=== PATIENT | male | born 1970 | race Caucasian/White ===

== ENCOUNTER 2017-08-22 06:19 | Day surgery (SDC) | payer OTHER ==
[~2017-08-22] VITALS: Ht 165.1 cm; Wt 72.7 kg
[~2017-08-22 06:19] MED LIST: LISI-363 PO
[2017-08-22] MEDS ORDERED: ASPI81CH37 CHEW (06:59)
[2017-08-22] MEDS ORDERED: ATOR40TA16 PO (06:59)
[2017-08-22 07:10] VITALS: BP 150/88; PULSE 94; RESP 17; TEMP 98.5; O2SAT 97
[2017-08-22] MEDS ORDERED: SODIUM CHLOR 0.9% 1000 ML INJ 1,000 ML IV SCH ×2 (07:15→12:00)
[2017-08-22] MEDS ORDERED: HEPARIN-NS/PF INJ 1,000 ML ONE (08:16)
[2017-08-22] MEDS ORDERED: MIDAZOLAM HCL 5 MG/5 ML VIAL ONE ×2 (08:17→09:00)
[2017-08-22] MEDS ORDERED: HEPARIN SODIUM - IV 10,000 UNITS/10 ML VIAL ONE (08:18)
[2017-08-22] MEDS ORDERED: NITROGLYCERIN INJ 5 ML ONE (08:19)
[2017-08-22] MEDS ORDERED: MIDAZOLAM HCL 2 MG/2 ML VIAL ONE ×2 (08:43→09:53)
[2017-08-22] MEDS ORDERED: LIDOCAINE HCL 2% 50 ML VIAL ONE (08:56)
[2017-08-22] MEDS ORDERED: HEPARIN-NS/PF INJ 500 ML ONE ×2 (09:05→09:50)
[2017-08-22] MEDS ORDERED: CLOPIDOGREL 300 MG TAB ONE (10:12)
[2017-08-22] MEDS ORDERED: ONDANSETRON HCL 4 MG/2 ML VIAL IV PUSH PRN (10:15)
[2017-08-22] MEDS ORDERED: MISC INFORMATION XX ONE (10:15)
[2017-08-22] MEDS ORDERED: LIDOCAINE HCL 1% 50 ML VIAL INFIL PRN (10:15)
[2017-08-22] MEDS ORDERED: METOCLOPRAMIDE HCL 10 MG/2 ML VIAL IV PUSH PRN (10:15)
[2017-08-22] MEDS ORDERED: LORazepam 2 MG/ML VIAL IV PUSH PRN (10:15)
[2017-08-22] MEDS ORDERED: ATROPINE SULFATE 1 MG/ML VIAL IV PUSH PRN (10:15)
[2017-08-22] MEDS ORDERED: SODIUM CHLOR 0.9% 250 ML INJ 250 ML IV PRN (10:15)
[2017-08-22] MEDS ORDERED: oxyCODONE/ACETAMINOPHEN 5 MG/325 MG TAB PO PRN ×2 (10:15)
[2017-08-22] MEDS ORDERED: PLAV75TA29 PO (10:18)
--- NOTE | 2017-08-22 10:19 | CATHPROC ---
vLex HIS Report Study Information Study Number Admission Scheduled Start Study Start [id number] Aug 22 2017 6:19AM 08/22/2017 Aug 22 2017 8:18AM [place] [facility] Cath Endovascular Study Admit Source Facility Department Other [facility] [address] - Saw Superintendent Physician and Clinical Staff Initial Will Benson Furnace Repairer Karina Yanes,ROME Other Edgard Wu,ROME Recorder Araceli Klein,RT(R) Scrub Jose A Wei,RT(R) Procedures Performed Procedure Location (Site) Vessel Name Abdominal Angiogram Abd Aorta (A3) Aorta Angiogram (manual) Iliac L. Com. (L4) [place] Art. Angiogram (manual) Iliac R. Com. (R4) [place] Art. Angiogram (manual) Peroneal (left) Popliteal Angiogram (manual) Popliteal L (L10) Popliteal Angiogram (manual) SFA (left) Femoral Art Angiogram (manual) Tib, Ant. (left) Popliteal Angiogram (manual) Tib, Post (Left) Popliteal Periph stent Iliac L. Com. (L4) [place] Art. Periph stent Iliac R. Com. (R4) [place] Art. LOCAL FLATBED DRIVER Iliac L. Com. (L4) [place] Art. Wire insertion Fem Art (left) Femoral Art Wire insertion Fem Art (right) Femoral Art Equipment Time Material Carrier Description Size Mfg Part Number Used/Scraped CATHETER, FR4 HORACE [id number] 09:16 ANGIO-DYNAMICS FR 4 Used 65CM *[id number] CATHETER, [facility] [id number] 09:06 CORDIS/ CARLINE 90CM Used 90CM *[id number] 08:28 CORDIS/ CARLINE RIM SUPER TORQUE CATHETER FR 5 Used *[id number] 09:01 CORDIS/ CARLINE SHEATH, FR6 BRITE TIP 23CM FR 6 23CM [id number] Used [id number] *[id number] ENDOVASCULAR [id number] 09:34 STENT, EVERFLEX 7 X 100 120CM 7 X 100 Used COMPANY 120 BALLOON, ADMIRAL EXTREME 7 X [id number] 09:29 [employer]EC [employer] 80CM Used 60 80CM *[id number] STENT, 7 X 20 ASSURANT [id number] 09:57 [employer] 130CM Used COBALT 130CM *[id number] STENT, 7 X 30 ASSURANT [id number] 10:03 [employer] 130CM Used COBALT 130CM *[id number] STENT, 7 X 60 ASSURANT [id number] 09:55 [employer] 80CM Used COBALT 80CM *[id number] 08:28 MALLINCKRODT SYRINGE, ANGIOMAT 150ML 150ML [id number] Used [id number] 08:28 MEDLINE INDUSTRIES PACK, CCL CUSTOM * Used *[id number] 08:28 MEDLINE PACER PEN, SKIN DUAL W/ RULER * Used *[id number]-6F- 09:41 N-Trig MEDICAL SHEATH, FR6.5 PRELUDE 11CM FR 6.5 038ACT Used *[id number]-6F- 10:07 MERIT MEDICAL SHEATH, FR6.5 PRELUDE 11CM FR 6.5 038ACT Used *[id number] 08:28 N-Trig MEDICAL WIRE, EXCHANGE 260CM [id number] 260CM Used *[id number] 08:28 NAMIC MANIFOLD, 4 PORT * Used *[id number] 08:28 NAMIC TUBING, HIGH PRESSURE 48" 48" Used *[id number] 08:28 NYCOMED OMNIPAQUE, 300 MG, 150ML 150ML [id number] Used 08:40 NYCOMED OMNIPAQUE, 350 MG, 150ML 150ML [id number] Used [id number] 08:28 [employer]ROE MEDICAL BLANKET,WARM AIR CCL * Used *1492975 [id number] 08:28 TERUMO MEDICAL SHEATH, FR5 TERUMO (10CM) FR 5 Used *[id number] WIRE, ANGLE GLIDE STIFF .035 [id number] 08:28 TERUMO MEDICAL/CARLINE 260CM Used 260CM *[id number] Equipment Model, Serial, Lot Number and Expiration Data Description Model Number Serial Number Lot Number Expiration Date SHEATH, FR6.5 PRELUDE 11CM [id number] 01-01-2020 STENT, 7 X 20 ASSURANT COBALT [id number] 01-18-2018 130CM STENT, 7 X 30 ASSURANT COBALT [id number] 09-12-2018 130CM STENT, 7 X 60 ASSURANT COBALT [id number] 03-05-2018 80CM STENT, EVERFLEX 7 X 100 120CM [id number] 09-07-2019 History: Current Medications Medication Dosage/Unit Route Frequency Last Date/Time Taken ASA Statins (any) History: Allergies Allergy Reaction phenobarbital History: Risk Factors Family History of Hypertension Dyslipidemia Previous CA Previous Heart Failure Premature CAD Yes Yes No No No Prior Valve Prior PCI Prior CABG Surgery No No No Cerebrovascular Peripheral Artery Chronic Lung On Dialysis Diabetes Disease Disease Disease No No Yes Yes No History: Stress Tests Stress or Imaging Studies Performed No History: Other Current Smoker Method Packs a Day Years Used Pack Years Yes Cigarettes 1 25 25 Labs Hgb (g/dl) Hct (%) RBC (MIL/MM3) WBC (l/cumm) Platelets (thousands) 11.60-17.00 35.00-51.00 4.00-5.90 4.00-11.00 150.00-450.00 16.3 48.6 5.2 13.4 342 Glucose (mg/dl) BUN (mg/dl) Creatinine (mg/dl) BUN:Creatinine (1:x) 74.00-106.00 7.00-18.00 0.50-1.30 10.00-20.00 112 11 1.1 10 Na (meq/l) K (meq/l) Cl (meq/l) CO2 (mmol/L) Ca (mg/dl) 136.00-145.00 3.50-5.10 98.00-107.00 21.00-32.00 8.50-10.10 140 4.2 101 20 9.4 PT (sec) INR (PTT:PT) 9.80-11.60 0.90-1.10 9.4 0.9 CPK-MB (ng/ML) 0.50-3.60 Not Drawn Medication Medication Total Dose (Bolus/Oral) Medication Total Dosage/Unit 1% XYLOCAINE 40 mL FENTANYL 350 mcg HEPARIN 6000 units PLAVIX 600 mg VERSED 13 mg Medications (Bolus/Oral) Medication Time Given Dosage/Unit Administered By Reason VERSED 08/22/2017 8:38:12 AM 2 mg Karina Yanes 2 mg VERSED given in lab by Karina Yanes RN via Peripheral IV. Ordered by Will Nolasco. FENTANYL 08/22/2017 8:39:32 AM 50 mcg Karina Yanes 50 mcg FENTANYL given in lab by Karina Yanes, ROME via Peripheral IV. Ordered by Will Nolasco. VERSED 08/22/2017 8:42:43 AM 2 mg Adamy, Karina 2 mg VERSED given in lab by Karina Yanes RN via Peripheral IV. Ordered by Will Nolasco. 1% XYLOCAINE 08/22/2017 8:43:05 AM 20 mL Will Nolasco 20 mL 1% XYLOCAINE given in lab by Will Nolasco in Right Groin via Subcutaneous. FENTANYL 08/22/2017 8:43:53 AM 50 mcg Adamy, Karina 50 mcg FENTANYL given in lab by Karina Yanes RN via Peripheral IV. Ordered by Will Nolasco. VERSED 08/22/2017 8:48:15 AM 2 mg Adamy, Karina 2 mg VERSED given in lab by Karina Yanes RN via Peripheral IV. FENTANYL 08/22/2017 8:49:29 AM 50 mcg Adamy, Karina 50 mcg FENTANYL given in lab by Karina Yanes RN via Peripheral IV. VERSED 08/22/2017 8:58:00 AM 1 mg Adamy, Karina 1 mg VERSED given in lab by Karina Yanes RN via Peripheral IV. FENTANYL 08/22/2017 8:59:10 AM 50 mcg Jonathany, Karina 50 mcg FENTANYL given in lab by Karina Yanes RN via Peripheral IV. 1% XYLOCAINE 08/22/2017 8:59:24 AM 20 mL Will Nolasco 20 mL 1% XYLOCAINE given in lab by Will Nolasco in Left Groin via Subcutaneous. HEPARIN 08/22/2017 9:03:26 AM 5000 units Karina Yanes 5000 units HEPARIN given in lab by Karina Yanes RN via Peripheral IV. VERSED 08/22/2017 9:07:24 AM 2 mg Adamy, Karina 2 mg VERSED given in lab by Karina Yanes RN via Peripheral IV. FENTANYL 08/22/2017 9:08:39 AM 50 mcg Adamy, Karina 50 mcg FENTANYL given in lab by Karina Yanes RN via Peripheral IV. VERSED 08/22/2017 9:33:24 AM 2 mg Adamy, Karina 2 mg VERSED given in lab by Karina Yanes, ROME via Peripheral IV. FENTANYL 08/22/2017 9:34:31 AM 50 mcg Karina Yanes 50 mcg FENTANYL given in lab by Karina Yanes, ROME via Peripheral IV. VERSED 08/22/2017 9:54:50 AM 2 mg Karina Yanes 2 mg VERSED given in lab by Karina Yanes, ROME via Peripheral IV. FENTANYL 08/22/2017 9:55:10 AM 50 mcg Karina Yanes 50 mcg FENTANYL given in lab by Karina Yanes, ROME via Peripheral IV. HEPARIN 08/22/2017 10:00:45 AM 1000 units Karina Yanes 1000 units HEPARIN given in lab by Karina Yanes, ROME via Peripheral IV. PLAVIX 08/22/2017 10:16:02 AM 600 mg Karina Yanes 600 mg PLAVIX given in lab by Karina Yanes RN via Oral. Medication (Drip) Medication Time Given Dosage/Unit Concentration/Unit Diluent (ml) Solution IV Solutions 08/22/2017 8:20:16 AM 0 mL (IV) 500 NaCl .9 Patient arrived on IV Solutions in Left Antecubital via Peripheral IV. Pump/Drip Flow = 20 ml/hr usin g NaCl .9. Ordered by Will Nolasco. Initial Case Assessment Cardiovascular HR Rhythm 78 reg Edema Present Skin color Skin None Normal Warm Circulatory - Right Pulses Dorsalis Pedis Femoral d 2 Scale (0,1,2,3,4,d) Circulatory - Left Pulses Dorsalis Pedis Femoral d 1 Scale (0,1,2,3,4,d) Circulatory - Lower Extremities Color Lower Right Color Lower Left Normal Normal Neurological State Oriented to time-place- Alert Moves all extremities person Respiration - General Respiration Rate SpO2 (%) (B/min) 9 97 Final Case Assessment Cardiovascular HR Rhythm NIBP Chest Pain 84 reg 123/69 0 Edema Present Skin color Skin None Normal Warm Circulatory - Right Pulses Dorsalis Pedis Femoral d 2 Scale (0,1,2,3,4,d) Circulatory - Left Pulses Dorsalis Pedis Femoral d 1 Scale (0,1,2,3,4,d) Circulatory - Lower Extremities Color Lower Left Normal Neurological State Oriented to time-place- Alert Moves all extremities person Respiration - General Respiration Rate SpO2 (%) (B/min) 18 96 Chronological Log Time Study Chronological Log 8:10:14 Patient arrived via Bed. 8:11:21 Patient Name, D.O.B, / Armband Verified By R.N. 8:12:26 Consent signed by the physician and the patient and verified by the Saw Superintendent staff. 8:13:31 Verbal Stimulation=2 Physical Stimulation=2 Airway=2 Respiration=2 TOTAL=8. (0=absent, 1=li mited, 2=present) 8:19:34 Patient has been NPO for More than 6Hrs. 8:19:36 Skin Breakdown-none 8:19:57 Patient Warmer Placed on the Table. 8:20:00 A # 20 IV was noted in the Antecubital (left). Grade = 0 Patient arrived on IV Solutions in Left Antecubital via Peripheral IV. Pump/Drip Flow = 20 ml/h r using NaCl .9. Ordered 8:20:16 by Will Nolasco. 8:20:53 History and physical on the chart or being dictated. Assessment: Initial Case, HR=78 BPM, Rhythm=reg, Edema=None, Color=Normal, Skin = Warm Right Pulses: Jose Antonio Ped=d, Femoral=2 Left Pulses: Jose Antonio Ped=d, Femoral=1 8:20:55 Lower Right Extremities: Color=Normal Lower Left Extremities: Color=Normal Neurological: State=Alert, Ox3, MCNEILL Respiration: Resp=9 B/min, SpO2=97 % Vitals capture started with the following parameters, Patient=Adult, Interval=5 min, Initial Pre rarcu=617 mmHg, 8:21:06 Deflation Rate=5 mmHg 8:21:41 HR=83 bpm, JBIX=476/85 mmhg, SpO2=97.0 %, Resp=9 B/min 8:21:42 Bilateral groins prepped with 2% chlorhexidine, and with a 3 min. waiting time. 8:24:15 MD paged 8:26:38 HR=84 bpm, ZOXH=785/82 mmhg, SpO2=98.0 %, Resp=14 B/min, Pain=0, Terri=10, Marques=2 8:32:10 EF=732 bpm, IXKO=805/87 mmhg, SpO2=99.0 %, Resp=16 B/min, Pain=0, Terri=10, Marques=2 8:36:38 HR=92 bpm, HEZG=850/90 mmhg, LjR6=764.0 %, Resp=10 B/min, Pain=0, Terri=10, Marques=2 8:37:26 MD arrived. 8:37:33 Pressure channel 1 zeroed. 8:38:12 2 mg VERSED given in lab by Karina Yanes, ROME via Peripheral IV. Ordered by Will Nolasco . 8:39:32 50 mcg FENTANYL given in lab by Karina Yanes RN via Peripheral IV. Ordered by Hernandez Nolasco. power injector loaded by sandy yanes and verified by maria isabel wei 8:39:44 8:40:08 Contrast Scanned 8:41:39 HR=88 bpm, MRUU=324/81 mmhg, TuU9=284.0 %, Resp=9 B/min, Pain=0, Terri=10, Marques=2 Time Out. Correct patient, correct procedure,correct physician, ,power injector loaded with cont rast with surgical team 8:41:51 present. Time Out Concurred by MD, individual staff and EYE SPECIALIST in procedure Time Out #2 - Consents verified, patient in correct position, all results are labled and display ed, safety precautions 8:41:58 taken, antibiotics administered. Time out concurred by , individual staff and EYE SPECIALIST. 8:42:00 Case Start 8:42:02 Verbal Stimulation=2 Physical Stimulation=2 Airway=2 Respiration=2 TOTAL=8. (0=absent, 1=tony ited, 2=present) 8:42:43 2 mg VERSED given in lab by Karina Yanes RN via Peripheral IV. Ordered by Will Nolasco . 8:43:05 20 mL 1% XYLOCAINE given in lab by Will Nolasco in Right Groin via Subcutaneous. 8:43:53 50 mcg FENTANYL given in lab by Karina Yanes RN via Peripheral IV. Ordered by Hernandez Nolasco. 8:44:58 Access site was Right Femoral Artery. 8:45:04 A wire was inserted via Fem Art (right). 8:45:16 A SHEATH, FR5 TERUMO (10CM) FR 5 was advanced into the Fem Art (right) using the Percutaneou s technique. A PIGTAIL ANG. INFINITI CATHETER FR 5 was advanced over a wire. OMNIPAQUE, 300 MG, 150ML 150ML w as used 8:46:39 for injections. 8:46:40 HR=80 bpm, HGAL=405/82 mmhg, SpO2=96.0 %, Resp=12 B/min, Pain=0, Terri=10, Marques=2 8:48:15 2 mg VERSED given in lab by Karina Yanes, ROME via Peripheral IV. 8:49:14 Through a PIGTAIL ANG. INFINITI CATHETER FR 5, The Abdominal Aorta was injected with 12 cc's of contrast. 8:49:29 50 mcg FENTANYL given in lab by Karina Yanes, ROME via Peripheral IV. After removing the current catheter a RIM SUPER TORQUE CATHETER FR 5 was advanced over a WIRE, A NGLE GLIDE 8:50:43 STIFF .035 260CM 260CM. 8:50:51 Wire removed 8:51:39 HR=75 bpm, GFJI=387/69 mmhg, SpO2=96.0 %, Resp=10 B/min, Pain=0, Terri=10, Marques=2 8:51:44 Iliac L. Com. (L4) angiogram, manually injected. 8:52:09 Iliac L. Com. (L4) angiogram, manually injected. 8:53:09 SFA (left) angiogram, manually injected. 8:53:56 Popliteal L (L10) angiogram, manually injected. 8:54:47 Peroneal (left) angiogram, manually injected. 8:55:36 Tib, Ant. (left) angiogram, manually injected. 8:55:44 Tib, Post (Left) angiogram, manually injected. 8:56:36 HR=72 bpm, IKGW=487/69 mmhg, SpO2=96.0 %, Resp=20 B/min, Pain=0, Terri=10, Marques=2 8:57:11 Catheter was removed 8:58:00 1 mg VERSED given in lab by Karina Yanes, ROME via Peripheral IV. 8:58:33 Iliac R. Com. (R4) angiogram, manually injected. 8:59:10 50 mcg FENTANYL given in lab by Karina Yanes, ROME via Peripheral IV. 8:59:24 20 mL 1% XYLOCAINE given in lab by Will Nolasco in Left Groin via Subcutaneous. 9:01:13 Access site was Left Femoral Artery. 9:01:39 HR=74 bpm, MSGU=657/68 mmhg, SpO2=96.0 %, Resp=20 B/min, Pain=0, Terri=10, Marques=2 9:01:49 A SHEATH, FR6 BRITE TIP 23CM FR 6 23CM was advanced into the Fem Art (left) using the Percut aneous technique. 9:03:26 5000 units HEPARIN given in lab by Karina Yanes, ROME via Peripheral IV. 9:06:40 HR=81 bpm, JYYW=682/62 mmhg, SpO2=97.0 %, Resp=15 B/min, Pain=0, Terri=10, Marques=2 9:06:47 Iliac L. Com. (L4) angiogram, manually injected. 9:07:24 2 mg VERSED given in lab by Karina Yanes, ROME via Peripheral IV. 9:08:39 50 mcg FENTANYL given in lab by Karina Yanes, ROME via Peripheral IV. A CATHETER, FRONTRUNNER RAT POISONER 90CM 90CM was advanced over a support catheter. OMNIPAQUE, 300 MG, 1 50ML 9:10:01 150ML was used for injections. 9:11:42 HR=69 bpm, ROAH=897/57 mmhg, SpO2=96.0 %, Resp=12 B/min, Pain=0, Terri=10, Marques=2 9:16:17 Activated Clotting Time Drawn 9:16:26 frontrunner Catheter was removed 9:16:41 HR=74 bpm, XIFY=296/67 mmhg, SpO2=94.0 %, Resp=13 B/min, Pain=0, Terri=10, Marques=2 A CATHETER, FR4 BERENSTEIN 65CM FR 4 was advanced over a wire. OMNIPAQUE, 300 MG, 150ML 150ML wa s used 9:16:46 for injections. 9:20:15 A WIRE, ANGLE GLIDE STIFF .035 260CM 260CM was inserted via Fem Art (left). 9:21:10 ACT (Normal Range 90-180) = 275 After removing the current catheter a CATHETER, FRONTRUNNER RAT POISONER 90CM 90CM was advanced over a WI RE, ANGLE 9:21:35 GLIDE STIFF .035 260CM 260CM. 9:21:42 HR=77 bpm, CPMA=001/60 mmhg, SpO2=98.0 %, Resp=12 B/min, Pain=0, Terri=10, Marques=2 9:26:25 Wire removed 9:26:31 Iliac L. Com. (L4) angiogram, manually injected with support catheter inplace 9:26:45 HR=72 bpm, XRFF=965/64 mmhg, SpO2=97.0 %, Resp=14 B/min, Pain=0, Terri=10, Marques=2 A BALLOON, ADMIRAL EXTREME 7 X 60 80CM 80CM was inserted over WIRE, ANGLE GLIDE STIFF .035 260CM 260CM 9:29:18 via the Iliac L. Com. (L4). 9:29:29 In the Iliac L. Com. (L4) a BALLOON, ADMIRAL EXTREME 7 X 60 80CM 80CM was inflated to 4 atms for 20 seconds. 9:31:46 HR=72 bpm, BJBW=236/58 mmhg, SpO2=98.0 %, Resp=13 B/min, Pain=0, Terri=10, Marques=2 9:32:52 Balloon Removed. A STENT, EVERFLEX 7 X 100 120CM 7 X 100 was deployed at ~AGUEDA~ atmospheres for ~SECONDS~ seconds in the 9:33:11 Iliac L. Com. (L4). self expanding 9:33:24 2 mg VERSED given in lab by Karina Yanes, RN via Peripheral IV. 9:34:31 50 mcg FENTANYL given in lab by Karina Yanes, RN via Peripheral IV. 9:36:45 HR=79 bpm, TMAL=306/63 mmhg, SpO2=93.0 %, Resp=18 B/min, Pain=0, Terri=10, Marques=2 A BALLOON, ADMIRAL EXTREME 7 X 60 80CM 80CM was inserted over WIRE, ANGLE GLIDE STIFF .035 260C M 260CM 9:37:02 via the Iliac L. Com. (L4). 9:37:18 In the Iliac L. Com. (L4) a BALLOON, ADMIRAL EXTREME 7 X 60 80CM 80CM was inflated to 4 atms for 20 seconds. 9:37:50 In the Iliac L. Com. (L4) a BALLOON, ADMIRAL EXTREME 7 X 60 80CM 80CM was inflated to 4 atms for 15 seconds. 9:39:20 In the Iliac L. Com. (L4) a BALLOON, ADMIRAL EXTREME 7 X 60 80CM 80CM was inflated to 4 atms for 15 seconds. 9:39:23 Balloon Removed. 9:41:09 Iliac L. Com. (L4) angiogram, manually injected. A SHEATH, FR6.5 PRELUDE 11CM FR 6.5 was exchanged in the Fem Art (left). This was necessary in order to insure 9:41:14 sterility. 9:41:44 HR=80 bpm, DRQU=165/69 mmhg, SpO2=96.0 %, Resp=11 B/min, Pain=0, Terir=10, Marques=2 9:44:37 A WIRE, ANGLE GLIDE STIFF .035 260CM 260CM was inserted via Fem Art (right). 9:44:47 Catheter was removed w/o difficulty 9:46:45 HR=70 bpm, JDCE=012/60 mmhg, SpO2=97.0 %, Resp=18 B/min, Pain=0, Terri=10, Marques=2 9:48:33 Activated Clotting Time Drawn A SHEATH, FR6 BRITE TIP 23CM FR 6 23CM was exchanged in the Fem Art (right). This was necessary in order to 9:48:59 accomodate a larger catheter. 9:51:02 A WIRE, ANGLE GLIDE STIFF .035 260CM 260CM was inserted via Fem Art (left). 9:52:23 HR=71 bpm, LIEP=140/66 mmhg, SpO2=99.0 %, Resp=20 B/min, Pain=0, Terri=10, Marques=2 9:52:46 ACT (Normal Range 90-180) = 288 9:54:50 2 mg VERSED given in lab by Karina Yanes, RN via Peripheral IV. 9:55:10 50 mcg FENTANYL given in lab by Karina Yanes, RN via Peripheral IV. A STENT, 7 X 20 ASSURANT COBALT 130CM 130CM was deployed at ~AGUEDA~ atmospheres for ~SECONDS~ sec onds in 9:56:07 the Iliac L. Com. (L4).self expanding A STENT, 7 X 60 ASSURANT COBALT 80CM 80CM was deployed at ~AGUEDA~ atmospheres for ~SECONDS~ secon ds in 9:56:42 the Iliac R. Com. (R4). self expanding 9:56:47 HR=75 bpm, EUEN=646/60 mmhg, SpO2=96.0 %, Resp=14 B/min, Pain=0, Terri=10, Marques=2 10:00:45 1000 units HEPARIN given in lab by Karina Yanes RN via Peripheral IV. 10:01:23 Reference ECG taken 10:01:46 HR=74 bpm, ELBQ=090/59 mmhg, SpO2=94.0 %, Resp=15 B/min, Pain=0, Terri=10, Marques=2 10:05:36 A implantable was advanced through a catheter over a wire. A STENT, 7 X 60 ASSURANT COBALT 80CM 80CM was advanced through a catheter over a WIRE, ANGLE GL MAYUR STIFF 10:05:45 .035 260CM 260CM. A STENT, 7 X 30 ASSURANT COBALT 130CM 130CM was advanced through a catheter over a WIRE, ANGLE GLIDE 10:06:12 STIFF .035 260CM 260CM. 10:06:42 A implantable was deployed at ~AGUEDA~ atmospheres for ~SECONDS~ seconds in the Iliac R. Com. (R4). 10:06:45 YV=666 bpm, OWEW=472/69 mmhg, SpO2=90.0 %, Resp=19 B/min, Pain=0, Terri=10, Marques=2 A STENT, 7 X 30 ASSURANT COBALT 130CM 130CM was deployed at 6 atmospheres for 10 seconds in the Iliac L. Com. 10:06:51 (L4). 10:08:27 An injection in the Fem Art (right) was made through the SHEATH, FR6.5 PRELUDE 11CM FR 6.5. 10:08:40 An injection in the Fem Art (left) was made through the SHEATH, FR6.5 PRELUDE 11CM FR 6.5. 10:08:46 Case End Assessment: Final Case, HR=84 BPM, Rhythm=reg, SMQZ=171/69 mmhg, Chest Pain=0, Edema=None, Col or=Normal, Skin = Warm Right Pulses: Jose Antonio Ped=d, Femoral=2 10:08:49 Left Pulses: Jose Antonio Ped=d, Femoral=1 Lower Left Extremities: Color=Normal Neurological: State=Alert, Ox3, MCNEILL Respiration: Resp=18 B/min, SpO2=96 % 10:09:18 Catheter(s) removed without difficulty 10:10:21 Sterile dressing applied to site 10:10:22 No case complications noted. 10:10:23 Cine recording checked. 10:10:24 Bedside Report will be given. 10:10:25 Implantable Device card placed in patient's chart. 10:10:27 Contrast Scanned 10:11:48 HR=74 bpm, OMCJ=806/66 mmhg, SpO2=98.0 %, Resp=20 B/min, Pain=0, Terri=10, Marques=2 10:12:19 In the Fem Art (right) the SHEATH, FR6.5 PRELUDE 11CM FR 6.[address] by Jose A Sandoval, RT(R). 10:12:28 In the Fem Art (left) the SHEATH, FR6.5 PRELUDE 11CM FR 6.[address] by Jose A Chua RT(R). 10:16:02 600 mg PLAVIX given in lab by Karina Yanes, RN via Oral. 10:16:49 HR=84 bpm, IWEG=027/66 mmhg, SpO2=99.0 %, Resp=11 B/min, Pain=0, Terri=10, Marques=2 10:18:27 Vitals capture stopped. End Study - Contrast Media Used In Study Contrast Total Opened (mL) Total Used (mL) Total Wasted (mL) Omnipaque 100 100 0 End Study - Maximum Contrast Load Max Contrast Load (mL) 330.4 End Study - Radiation Exposure Fluoro Time (minutes) 25.0 End Study - Patient Disposition Complications Transferred To No Outpatient Bed
--- NOTE | 2017-08-22 10:37 | MA ---
cc: TESS LAWS DATE 08/22/2017 Peripheral angiography with intervention. PROCEDURE PERFORMED 1. Descending aortography 2. Bilateral lower extremity peripheral angiography with first, second, third order visualization of left lower extremity and first order visualization of the right lower extremity. 3. Percutaneous endovascular stenting of bilateral common iliac arteries. 4. Percutaneous endovascular stenting of the left external iliac artery. METHOD The risks, benefits and alternatives discussed with the patient. The patient understood and consented to the procedure. The patient brought into the catheterization lab, placed on the catheterization table. The right groin was prepped and draped in a sterile fashion. The right groin was anesthetized with 2% lidocaine. The right common femoral artery was cannulated and a 5-German, 11 cm sheath was placed without difficulty. DESCENDING AORTOGRAPHY Descending aortography was performed anterior-posterior view using a 24 cc contrast injection with good opacification. The descending aortography revealed mild infrarenal descending aortic atherosclerosis. PERIPHERAL ANGIOGRAPHY 1. Left common iliac artery has minor luminal irregularities. The left external iliac artery is 100% occluded. Left internal iliac artery has 70% proximal stenosis. Left common femoral profunda, superficial femoral, popliteal, anterior tibial, posterior tibial and peroneal vessels are widely patent. 2. Right common iliac artery has a 75% stenosis with 20 mmHg translational gradient. Right external internal iliac artery is widely patent. The right external iliac artery has 30% tubular stenosis. The right common femoral is patent. PERCUTANEOUS INTERVENTION A 6-German bright tipped 23-cm sheath was placed in the left common femoral artery. A rim catheter was selectively engaged in the left common iliac artery from the right femoral access for antegrade visualization. Heparin was administered throughout the entire procedure to maintain appropriate anticoagulation. A front-runner catheter was prepped and advanced to the left common femoral sheath in a retrograde fashion. Front-runner catheter was carefully advanced through the chronic occlusion into the descending aorta. As we exchanged catheter, we advanced a wire after digital subtraction angiography confirmed intraluminal placement. A 7.0 x 60 mm Medtronic balloon was deployed in the left common external iliac artery. Repeat angiography showed catholic of SKYLER-III flow, but dissection flap was present extending down the external iliac artery. A 7.0 x 100 mm Medtronic self-expanding stent was then deployed in the distal left common iliac artery extending across the left external iliac artery and post dilated gently with a 7.0 mm balloon. Repeat angiography showed SKYLER-III flow. No residual dissection in the left external iliac artery. Proximally, there did appear to be maybe an edge dissection on the stent. Better visualization from the right side did reveal a proximal dissection flap. At this point, we elected to proceed with kissing stents at the common iliac arteries. A 7.0 x 30 mm balloon expandable stent was then advanced to the left common iliac artery and a 7.0 x 60 mm balloon expandable stent was advanced to the right common iliac artery and simultaneously deployed to 6 atmospheres. Repeat angiography showed no residual stenosis or dissection and SKYLER-III flow. Both sheaths were exchanged for a 6-German short sheath sewn into place to be removed with manual hemostasis. CONCLUSION 1. Mild infrarenal descending aortic atherosclerosis. 2. 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 3. 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 4. Successful endovascular stenting of bilateral common and left external iliac arteries. PLAN The patient will be continued on aggressive medical therapy. Hopefully this will translate well with symptomatic improvement. We will monitor any post procedural complications. Anticipate discharge later today. MD SAIRA Marx/POONAM /10:11 AM /10:19 AM
[2017-08-22] MEDS ORDERED: BACITRACIN OINT 0.9 GM PKT TOP ONE (12:15)
== END 2017-08-22 19:22 | disposition home or self-care (01) ==
LOC: HDIC 06:19 → HDOC 06:19
PROVIDERS: ATTEND Internal Medicine
DX: I70.213 Atherosclerosis of native arteries of extremities with intermittent claudication, bilateral legs (principal); I70.92 Chronic total occlusion of artery of the extremities; I70.0 Atherosclerosis of aorta
CPT/HCPCS: 37221; 37223; 75625; 75716; 85002; 85347; 86850; 86900; 86901; C1725; C1769; C1876; C1887; C1893; J1644; J2250; J3010; J7030